=== PATIENT | male | born 1940 | race Caucasian/White ===

== ENCOUNTER 2023-05-01 13:34 | Observation (INO) | payer MEDICARE, OTHER ==
[2023-05-01 14:19] LABS: BASOPHILS ABSOLUTE AUTO 0.02 K/uL (0.00-0.20); BASOPHILS PERCENT AUTO 0.2 % (0.0-2.0); HEMATOCRIT 46.7 % (39.0-49.0); HEMOGLOBIN 15.5 g/dL (13.1-16.8); LYMPHOCYTES ABSOLUTE AUTO 0.84 K/uL (0.50-3.50); LYMPHOCYTES PERCENT AUTO 8.8 % (10.0-50.0); MEAN CORPUSCULAR HEMOGLOBIN 32.5 pg (28.2-33.3); MEAN CORPUSCULAR HGB CONC 33.2 g/dL (31.7-36.0); MEAN CORPUSCULAR VOLUME 97.9 fL (84.0-98.0); MONOCYTES ABSOLUTE AUTO 0.19 K/uL (0.00-1.00); NEUTROPHILS ABSOLUTE AUTO 8.46 K/uL (1.40-7.00); PLATELET COUNT,PLT 178 K/uL (150-350); RED BLOOD CELL COUNT 4.77 M/uL (4.33-5.41); RED CELL DISTRIBUTION WIDTH 14.3 % (11.2-14.1); WHITE BLOOD CELL COUNT,WBC 9.5 K/uL (4.0-10.2)
[2023-05-01 14:38] LABS: ALBUMIN 3.6 g/dL (3.4-5.0); BILIRUBIN TOTAL 0.7 mg/dL (0.2-1.0); CALCIUM 9.7 mg/dL (8.5-10.1); CARBON DIOXIDE,CO2 32.3 mmol/L (21.0-32.0); CREATININE 1.32 mg/dL (0.51-1.17); EST CRCL DRUG DOSING (CG) 47.54 mL/min; POTASSIUM,K 4.3 mmol/L (3.5-5.1); PROTEIN TOTAL,TP 6.7 g/dL (6.4-8.2)
[2023-05-01] MEDS ORDERED: oxyCODONE 5 MG Tab PO ONE (15:15)
[2023-05-01] MEDS ORDERED: Acetaminophen 325 MG Tab PO ONE (15:16)
[2023-05-01] MEDS ORDERED: Ondansetron 4 MG/2 ML SDV IVPUSH PRN (19:06)
[2023-05-01] MEDS ORDERED: oxyCODONE 5 MG Tab PO PRN (19:06)
[2023-05-01] MEDS ORDERED: Sodium Chloride 0.9% 10 ML Syringe FLUSH PRN (19:06)
[2023-05-01] MEDS ORDERED: Pantoprazole 40 MG Vial IVPUSH ONE (19:21)
[2023-05-01] MEDS: DULoxetine 30 MG Cap PO SCH (20:01)
[2023-05-01] MEDS: Lactated Ringers 1,000 ML IV SCH (20:02)
[2023-05-01] MEDS: Sennosides/Docusate Sodium 50-8.6 MG Tab PO PRN (22:33)
[2023-05-02] MEDS: Lactated Ringers 1,000 ML IV SCH (05:39)
[2023-05-02] MEDS ORDERED: Losartan 50 MG Tab PO SCH (08:00)
[2023-05-02] MEDS ORDERED: Hydrochlorothiazide 25 MG Tab PO SCH (08:00)
[2023-05-02] MEDS ORDERED: predniSONE 20 MG Tab PO SCH (08:00)
[2023-05-02] MEDS: DULoxetine 30 MG Cap PO SCH (08:11)
[2023-05-02] MEDS: Sennosides/Docusate Sodium 50-8.6 MG Tab PO PRN (08:11)
[2023-05-02] MEDS: Acetaminophen 325 MG Tab PO PRN ×2 (08:11→16:11)
[2023-05-02 11:07] LABS: ANION GAP 5.2 meq/L (7-15); CALCIUM 8.5 mg/dL (8.5-10.1); CARBON DIOXIDE,CO2 31.8 mmol/L (21.0-32.0); CREATININE 1.17 mg/dL (0.51-1.17); EST CRCL DRUG DOSING (CG) 53.63 mL/min; POTASSIUM,K 3.7 mmol/L (3.5-5.1)
== END 2023-05-02 16:40 | disposition home or self-care (01) ==
LOC: LL.ED 13:34 → LL.MS 18:30 → MERGE 18:30
PROVIDERS: ADMIT Emergency Medicine; ATTEND Emergency Medicine
DX: S82.401A Unspecified fracture of shaft of right fibula, initial encounter for closed fracture (principal); S82.201A Unspecified fracture of shaft of right tibia, initial encounter for closed fracture; E78.00 Pure hypercholesterolemia, unspecified; I10 Essential (primary) hypertension; K21.9 Gastro-esophageal reflux disease without esophagitis; M19.90 Unspecified osteoarthritis, unspecified site; M54.9 Dorsalgia, unspecified; G89.29 Other chronic pain; Z88.0 Allergy status to penicillin; Z88.8 Allergy status to other drugs, medicaments and biological substances; Z79.899 Other long term (current) drug therapy; W01.0XXA Fall on same level from slipping, tripping and stumbling without subsequent striking against object, initial encounter
CPT/HCPCS: 29515; 36415; 71045; 73560-RT; 73610-RT; 73700-RT; 80048; 80053; 85025; 96361; 96374; 97162-GP; 99285; A9270-GY; C9113; G0378; J3490; J7120; J7500; J7512